=== PATIENT | male | born 1945 | race Caucasian/White ===

== ENCOUNTER 2017-09-04 13:44 | Emergency (ER) | payer OTHER ==
[2017-09-04 14:10] LABS: BASOPHILS % (AUTO) 0.6 % (0.0-5.0); HEMATOCRIT 43.6 % (42-54); LYMPHOCYTES % (AUTO) 29.7 % (21.0-51.0); MEAN CORPUSCULAR HEMOGLOBIN 29.3 pg (27.0-33.0); MEAN CORPUSCULAR VOLUME 83.7 fL (79-99); MONOCYTES % (AUTO) 7.9 % (3.0-13.0); NEUTROPHILS % (AUTO) 59.8 % (40.0-77.0); PLATELET COUNT (AUTO) 194 K/uL (130-400); RED BLOOD CELL COUNT(AUTO) 5.21 MIL/uL (4.50-6.20); RED CELL DISTRIBUTION WIDTH 13.1 % (11.0-15.5); WHITE BLOOD COUNT (AUTO) 7.1 K/uL (4.8-10.8)
[2017-09-04 14:19] LABS: INR 0.95 (0.85-1.15); PARTIAL THROMBOPLASTIN TIME 25.3 SEC (26.3-35.5)
[2017-09-04 14:22] LABS: CREATININE 1.1 mg/dL (0.5-1.5); POTASSIUM 4.2 mmol/L (3.5-5.1)
[2017-09-04 14:25] LABS: ALBUMIN 3.7 g/dL (3.5-5.0); BILIRUBIN,TOTAL 0.5 mg/dL (0.2-1.0); TOTAL PROTEIN, SERUM 6.5 g/dL (6.0-8.3)
[2017-09-04] MEDS ORDERED: SODIUM CHLORIDE 0.9% 1000ML 1,000 ML IV ONE (14:49)
[2017-09-04] MEDS ORDERED: ONDANSETRON HCL 4 MG/2 ML VIAL ONE (14:49)
[2017-09-04] MEDS ORDERED: IPRATROPIUM/ALBUTEROL SULFATE 3 ML SOLUTION IH ONE ×2 (15:16→16:36)
[2017-09-04] MEDS ORDERED: ASPIRIN 81MG TAB.CHEW ONE (15:18)
[2017-09-04] MEDS ORDERED: METHYLPREDNISOLONE SOD SUCC 125MG/2ML VIAL ONE (15:19)
[2017-09-04] MEDS ORDERED: MAGNESIUM 2GM PREMIX 50ML 50 ML IV ONE (15:19)
== END 2017-09-04 18:02 | disposition home or self-care (01) ==
LOC: EDH 13:44
DX: J44.1 Chronic obstructive pulmonary disease with (acute) exacerbation (principal); R07.89 Other chest pain; I10 Essential (primary) hypertension; Z88.2 Allergy status to sulfonamides; Z87.891 Personal history of nicotine dependence
CPT/HCPCS: 36415; 71045; 80053; 83880; 84484; 85025; 85610; 85730; 87804 ×2; 93005; 94640 ×2; 96361; 96365; 96375; 99285; J2405; J2930; J3475; J7030

== ENCOUNTER 2018-06-29 23:30 | Emergency (ER) | payer OTHER ==
[2018-06-29] MEDS ORDERED: CLONIDINE HCL 0.1 MG TABLET ONE (23:54)
[2018-06-30 00:13] LABS: BASOPHILS % (AUTO) 0.9 % (0.0-5.0); EOSINOPHILS % (AUTO) 2.7 % (0.0-8.0); HEMATOCRIT 39.2 % (42-54); LYMPHOCYTES % (AUTO) 24.4 % (21.0-51.0); MEAN CORPUSCULAR HEMOGLOBIN 28.8 pg (27.0-33.0); MEAN CORPUSCULAR HGB CONC 33.8 g/dL (32.0-36.0); MONOCYTES % (AUTO) 6.3 % (3.0-13.0); NEUTROPHILS % (AUTO) 65.7 % (40.0-77.0); PLATELET COUNT (AUTO) 204 K/uL (130-400); RED BLOOD CELL COUNT(AUTO) 4.61 MIL/uL (4.50-6.20); RED CELL DISTRIBUTION WIDTH 13.4 % (11.0-15.5); WHITE BLOOD COUNT (AUTO) 8.8 K/uL (4.8-10.8)
[2018-06-30 00:22] LABS: POTASSIUM 3.9 mmol/L (3.5-5.1)
[2018-06-30 00:54] LABS: B-TYPE NATRIURETIC PEPTIDE 56 pg/mL (0-100)
== END 2018-06-30 02:27 | disposition home or self-care (01) ==
LOC: EDH 23:30
DX: I10 Essential (primary) hypertension (principal); J44.9 Chronic obstructive pulmonary disease, unspecified; Z87.891 Personal history of nicotine dependence; Z88.2 Allergy status to sulfonamides; Z96.649 Presence of unspecified artificial hip joint
CPT/HCPCS: 36415; 71045; 80048; 83880; 84484; 85025; 93005